=== PATIENT | female | born 1935 | race Caucasian/White ===

== ENCOUNTER 2016-10-18 10:04 | Outpatient (CLI) ==
[2013-01-21 13:59] VITALS: TEMP 97.5
[2013-05-20 11:28] VITALS: BMI 36.6
== END 2016-10-18 10:05 ==
LOC: AMBL 10:04
PROVIDERS: ATTEND Family Medicine
DX: E11.65 Type 2 diabetes mellitus with hyperglycemia (principal)

== ENCOUNTER 2016-10-29 21:48 | Outpatient (CLI) ==
[2013-01-21 13:59] VITALS: TEMP 97.5
[2013-05-20 11:28] VITALS: BMI 36.6
== END 2016-10-29 21:49 ==
LOC: AMBL 21:48
PROVIDERS: ATTEND Emergency Medicine
DX: R29.810 Facial weakness (principal); R47.81 Slurred speech; R53.1 Weakness; R73.9 Hyperglycemia, unspecified; Z86.73 Personal history of transient ischemic attack (TIA), and cerebral infarction without residual deficits

== ENCOUNTER 2016-10-31 18:10 | Outpatient (CLI) ==
[2013-01-21 13:59] VITALS: TEMP 97.5
[2013-05-20 11:28] VITALS: BMI 36.6
== END 2016-10-31 18:11 ==
LOC: AMBL 18:10
PROVIDERS: ATTEND Emergency Medicine
DX: T40.2X2A Poisoning by other opioids, intentional self-harm, initial encounter (principal)

== ENCOUNTER 2016-11-08 15:07 | Outpatient (CLI) ==
[2013-01-21 13:59] VITALS: TEMP 97.5
[2013-05-20 11:28] VITALS: BMI 36.6
--- NOTE | 2016-11-08 15:52 | DI ---
EXAM: Two views of the chest. History: Cough. Comparison: Chest radiograph 05/20/2013 Findings: Heart is borderline enlarged. Atherosclerotic vascular calcifications. No focal consoli dation. No appreciable pleural fluid and no pneumothorax. No acute osseous abnormalities. Impression: Borderline cardiomegaly without acute disease in the chest.
== END 2016-11-08 15:08 | disposition home or self-care (01) ==
LOC: RAD 15:07
PROVIDERS: ATTEND Family Medicine
DX: R05 Cough (principal)

== ENCOUNTER 2017-01-22 09:43 | Outpatient (CLI) ==
[2013-01-21 13:59] VITALS: TEMP 97.5
[2013-05-20 11:28] VITALS: BMI 36.6
== END 2017-01-22 10:13 ==
LOC: AMBL 09:43
PROVIDERS: ATTEND Internal Medicine
DX: R53.1 Weakness (principal); R73.9 Hyperglycemia, unspecified; Z86.73 Personal history of transient ischemic attack (TIA), and cerebral infarction without residual deficits

== ENCOUNTER 2017-03-28 11:46 | Outpatient (CLI) ==
[2013-01-21 13:59] VITALS: TEMP 97.5
[2013-05-20 11:28] VITALS: BMI 36.6
== END 2017-03-28 11:47 | disposition home or self-care (01) ==
LOC: AMBL 11:46
PROVIDERS: ATTEND Internal Medicine
DX: E11.65 Type 2 diabetes mellitus with hyperglycemia (principal)

== ENCOUNTER 2017-03-29 13:59 | Outpatient (CLI) ==
[2013-01-21 13:59] VITALS: TEMP 97.5
[2013-05-20 11:28] VITALS: BMI 36.6
== END 2017-03-29 14:00 ==
LOC: AMBL 13:59
PROVIDERS: ATTEND Internal Medicine
DX: R53.1 Weakness (principal); E11.9 Type 2 diabetes mellitus without complications; I10 Essential (primary) hypertension; I50.9 Heart failure, unspecified; W19.XXXA Unspecified fall, initial encounter; Z86.73 Personal history of transient ischemic attack (TIA), and cerebral infarction without residual deficits; Z95.5 Presence of coronary angioplasty implant and graft

== ENCOUNTER 2017-04-20 16:01 | Outpatient (CLI) ==
[2013-01-21 13:59] VITALS: TEMP 97.5
[2013-05-20 11:28] VITALS: BMI 36.6
== END 2017-04-20 16:02 | disposition short-term general hospital (02) ==
LOC: AMBL 16:01
PROVIDERS: ATTEND Internal Medicine Geriatric Medicine
DX: R20.0 Anesthesia of skin (principal); I69.354 Hemiplegia and hemiparesis following cerebral infarction affecting left non-dominant side; I45.10 Unspecified right bundle-branch block; R63.0 Anorexia

== ENCOUNTER 2017-08-25 13:07 | Outpatient (CLI) ==
[2013-01-21 13:59] VITALS: TEMP 97.5
[2013-05-20 11:28] VITALS: BMI 36.6
== END 2017-08-25 13:08 | disposition short-term general hospital (02) ==
LOC: AMBL 13:07
PROVIDERS: ATTEND Internal Medicine Geriatric Medicine
DX: R53.1 Weakness (principal); M79.605 Pain in left leg; M79.604 Pain in right leg

== ENCOUNTER 2017-10-16 20:16 | Outpatient (CLI) ==
[2013-01-21 13:59] VITALS: TEMP 97.5
[2013-05-20 11:28] VITALS: BMI 36.6
== END 2017-10-16 20:17 | disposition left against medical advice (07) ==
LOC: AMBL 20:16
PROVIDERS: ATTEND Family Medicine
DX: Z74.2 Need for assistance at home and no other household member able to render care (principal); W07.XXXA Fall from chair, initial encounter

== ENCOUNTER 2017-10-29 23:03 | Emergency (ER) ==
--- NOTE | 2017-10-29 23:12 | ED.PDOC ---
General ED Provider: Dr. MEME BEAVERS Chief Complaint: Fall Stated Complaint: Patient states she fell a home today . Now has pain on the left hand and wrist. Also has pain with movement . Time Seen by Physician: 23:13 Mode of Arrival: Ambulance Information Source: Patient Exam Limitations: No limitations Primary Care Provider: NADEEM GUZMÁN Seen Within Last 72 Hours for Same Complaint By: ED Nursing and Triage Documentation Reviewed and Agree: Yes Reviewed sepsis parameters & appropriate labs ordered?: No System Inflammatory Response Syndrome: Not Applicable Sepsis Protocol: For patient's 13 years and over: Temp is 96.8 and below OR 101 and greater Pulse >90 BPM Resp >20/minute Acutely Altered Mental Status Are patient's symptoms suggestive of a new infection, such as: -Pneumonia -Skin, Soft Tissue -Endocarditis -UTI -Bone, Joint Infection -Implantable Device -Acute Abdominal Infection -Wound Infection -Meningitis -Blood Stream Catheter Infection -Unknown System Inflammatory Response Syndrome: Not Applicable Review of Systems - Review Of Systems Constitutional: Reports: No symptoms Eyes: Reports: No symptoms Ears, Nose, Mouth, Throat: Reports: No symptoms Respiratory: Reports: No symptoms Cardiac: Reports: No symptoms GI: Reports: No symptoms : Reports: No symptoms Musculoskeletal: Reports: Joint pain, Joint swelling Skin: Reports: No symptoms Neurological: Reports: Anxiety Endocrine: Reports: No symptoms Hematologic/Lymphatic: Reports: No symptoms All Other Systems: Reviewed and Negative Past Medical History - Past Medical History Endocrine: Reports: DM 2 Cardiovascular: Reports: CAD (stents ), Hypertension, CHF Respiratory: Reports: None Hematological: Reports: None Gastrointestinal: Reports: None Genitourinary: Reports: None Neuro/Psych: Reports: None Musculoskeletal: Reports: Arthritis Cancer: Reports: None - Surgical History General Surgical History: Reports: Orthopedic (Knee replacement ), Stent Placement - Family History Family History: Reports: None - Social History Smoking Status: Never smoker Hx Substance Use: No Physical Exam - Physical Exam Appearance: Ill-appearing, Obese Ill-appearing: Mild Pain Distress: Moderate Neck: Supple Respiratory: Airway patent Cardiovascular: RRR, Pulses normal, No rub, No murmur GI/: Soft, Nontender, No masses, Bowel sounds normal, No Organomegaly Musculoskeletal: Limited ROM (left wrist ) Neurological: Alert, Oriented Psychiatric: Anxious Interpretation - Radiology Interpretation Radiology Interpretation By: Radiologist Radiology Results: Positive Exam Interpreted: Other Critical Care Note - Critical Care Note Total Time (mins): 0 Course - Course Orders, Labs, Meds: Orders Category Date Time Status Splint [ED SPLINT APPLICATION] .ONCE EMERGENCY 10/29/17 23:52 Active Tramadol HCl [Ultram] MEDS 10/29/17 23:20 Discontinued 50 mg PO ONCE STA HAND, LEFT 3 VIEWS Stat RADS 10/29/17 23:12 Ordered WRIST, LEFT 3 VIEWS Stat RADS 10/29/17 23:07 Completed Medications Discontinued Medications Generic Name Dose Route Start Last Admin Trade Name Freq PRN Reason Stop Dose Admin Tramadol HCl 50 mg 10/29/17 23:20 10/29/17 23:28 Ultram PO 10/29/17 23:21 50 mg ONCE STA Administration Vital Signs: Temp Pulse Resp BP Pulse Ox 10/29/17 23:07 98.3 F 93 H 20 114/74 94 L Departure - Departure Time of Disposition: 23:23 Disposition: HOME SELF-CARE Discharge Problem: Wrist sprain Qualifiers: Encounter type: initial encounter Laterality: left Qualified Code(s): S63.502A - Unspecified sprain of left wrist, initial encounter Distal radius fracture, left Qualifiers: Encounter type: initial encounter Fracture type: closed Fracture morphology: unspecified fracture morphology Qualified Code(s): S52.502A - Unspecified fracture of the lower end of left radius, initial encounter for closed fracture Instructions: Wrist Injury (ED), Wrist Fracture in Adults (ED) Condition: Stable Pt referred to PMD for follow-up: Yes IPMP verified?: No Additional Instructions: Use wrist splint as needed Take pain medications as prescribed Follow up with PCP In 1-2 days Prescriptions: Tramadol HCl [Ultram] 50 mg PO Q6H PRN #10 tablet PRN Reason: Severe Pain Allergies/Adverse Reactions: Allergies morphine Allergy (Intermediate, Verified 10/29/17 23:17) acetaminophen [From Percocet] Adverse Reaction (Verified 10/29/17 23:17) oxycodone HCl [From Percocet] Adverse Reaction (Verified 10/29/17 23:17) Home Medications: Ambulatory Orders Amlodipine Besylate [Norvasc] 5 mg PO BID 01/21/13 Ca Cmb No.1/Vit D3/B-6/FA/B12 [Vitamin D3 1,000 Unit Tablet] 1 each PO 01/21/13 Calcium Carbonate [Tums] 01/21/13 Calcium Carbonate [Tums] 1,000 PO DAILY 01/21/13 Clopidogrel Bisulfate [Clopidogrel] 75 mg PO 01/21/13 Colestipol HCl [Colestid] 1 gm PO BID 01/21/13 Dexlansoprazole [Dexilant] 01/21/13 Fluoxetine HCl [Prozac] 40 mg PO DAILY 01/21/13 Furosemide [Lasix Tab] 01/21/13 Nebivolol HCl [Bystolic] 5 mg PO DAILY 01/21/13 Simvastatin [Zocor] 20 mg PO BEDTIME 01/21/13 Fesoterodine Fumarate [Toviaz] 8 mg PO DAILY 10/28/14 Sucralfate [Carafate] 1 gm PO BID 10/28/14 Tramadol HCl [Ultram] 50 mg PO Q6H PRN #10 tablet 10/29/17 Disposition Discussed With: Patient, Family
[2017-10-29 23:20] VITALS: BMI 36.9
[2017-10-29] MEDS: ULTRAM PO STA (23:28)
--- NOTE | 2017-10-30 00:29 | DI ---
EXAM: Left wrist three views HISTORY: Trauma COMPARISON: None. FINDINGS: Degenerative changes are noted about the first carpometacarpal and trapezioscaphoid joints . Milder changes noted about the radiocarpal joint.. Mild deformity is noted about the distal radia l metadiaphysis laterally with cortical step off. . Findings likely related to old healed post-traum atic changes. Correlate with clinical exam IMPRESSION: Osteoarthritic degenerative changes as described. Cortical step off about the distal radial metadiaphysis as described.
[2017-10-30 03:36] VITALS: BP 118/72; TEMP 98.6
--- NOTE | 2017-10-30 07:58 | DI ---
EXAM: Four views of the left hand. History: Left hand trauma. Findings: Osteopenia. There is a mildly displaced fracture of the distal left radial shaft. No dis location. Severe narrowing of the scaphoid trapezium articulation. Severe narrowing of the second D IP joints. Impression: Distal left radial fracture. Osteoarthritis.
== END 2017-10-30 03:25 | disposition home or self-care (01) ==
LOC: ED 23:03
DX: S52.502A Unspecified fracture of the lower end of left radius, initial encounter for closed fracture (principal); S63.502A Unspecified sprain of left wrist, initial encounter; W19.XXXA Unspecified fall, initial encounter
CPT/HCPCS: 99283

== ENCOUNTER 2017-11-01 11:18 | Outpatient (CLI) | payer OTHER ==
[2013-01-21 13:59] VITALS: TEMP 97.5
== END 2017-11-01 11:19 | disposition expired ==
LOC: AMBL 11:18
PROVIDERS: ATTEND Internal Medicine
DX: I46.9 Cardiac arrest, cause unspecified (principal)